=== PATIENT | female | born 1990 | race Caucasian/White ===

== ENCOUNTER 2016-05-27 06:35 | Emergency (ER) | payer OTHER ==
[~2016-05-27] VITALS: Ht 165.1 cm; Wt 99.8 kg
[~2016-05-27 06:35] MED LIST: ALBUTEROL0.09 MG/A1 INH; COMPAZINE10 M1 PO; CYCLOBENZAPRINE5 M2 PO; FLEXERIL10 MG PO; IBUPROFEN800 M1 PO; MARI INH; MECLIZINE HCL25 MG PO; PREDNISONE 20MG20 MG PO; PRILOSEC OTC20 MG PO; TOPIRAMATE25 M2 PO; TRANSDERM-SCOP1 EACH TOP; ZITHROMAX Z-PA250 M1 PO; ZOFRAN ODT4 MG PO; ZOFRAN4 M1 PO; ZOFRAN4 M2 PO
--- NOTE | 2016-05-27 07:32 | ED GI/GU/ABDOMINAL COMPLAINT ---
History of Present Illness General Chief Complaint: General Adult Stated Complaint: "PER PT NEED FLUIDS KEEP VOMITING" Source: patient, old records Exam Limitations: no limitations Vital Signs & Intake/Output Vital Signs & Intake/Output Vital Signs Date Time Temp Pulse Resp B/P Pulse O2 O2 Flow FiO2 Ox Delivery Rate 05/27 0738 100 Room Air 05/27 0654 97.3 110 16 135/88 97 Room Air Allergies Coded Allergies: avocado (Severe, ANAPHYLAXIS 12/22/15) Reconcile Medications Cannabis (Marijuana Oil) (Unknown Strength) AMP (Unknown Dose) INH AD PRN PTSD (Reported) Meclizine HCl 25 MG TABLET 1 TAB PO BID VERTIGO (Reported) Ondansetron (Zofran Odt) 4 MG TAB.RAPDIS 1 TAB SL TID PRN nausea, vomiting Prochlorperazine Maleate (Compazine) 10 MG TABLET 1 TAB PO TID PRN NAUSEA Scopolamine Hydrobromide (Transderm-Scop) 1.5MG/3DAY PATCH.TD.3 1 PAT TOP Q3D PRN DIZZY apply to the hairless area behind 1 ear at least 4 hours before effect is required; reapply every 3 days as needed Topiramate 25 MG TABLET 1 TAB PO QPM SEIZURES (Reported) Triage Note: 26YO FEMALE TO TRIAGE W/CO VOMITING SINCE 0200 AFTER DRINKING. DENIES ANY ABD PAIN OR DIARRHEA. Triage Nurses Notes Reviewed? yes LMP (ages 10-50): unknown ? N Is pt currently ? No Onset: Morning Duration: hour(s):, continues in ED Timing: recent history Quality/Severity: severe, vomiting Radiation: no radiation Activities at Onset: rest Prior Abdominal Problems: none Past Sexual History: Unobtainable at this time Modifying Factors: Worsens With: eating. Associated Symptoms: loss of appetite, nausea/vomiting, weakness HPI: Evening prior to admission patient was celebrating her birthday and drank a lot of alcohol. Several hours prior to admission she developed nausea vomiting weakness. She denies fever chills chest pain cough shortness of breath abdominal pain diarrhea dysuria rash headache bleeding. Past History Travel History Traveled to [place] past 21 day No Medical History Any Pertinent Medical History? 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 No Review of Systems Review of Systems Constitutional: Reports: no symptoms. EENTM: Reports: no symptoms. Respiratory: Reports: no symptoms. Cardiovascular: Reports: no symptoms. GI: Reports: see HPI, nausea, vomiting. Genitourinary: Reports: no symptoms. Musculoskeletal: Reports: no symptoms. Skin: Reports: no symptoms. Neurological/Psychological: Reports: no symptoms. Hematologic/Endocrine: Reports: no symptoms. Immunologic/Allergic: Reports: no symptoms. All Other Systems: Reviewed and Negative Physical Exam Physical Exam General Appearance: well developed/nourished, alert, awake, anxious, moderate distress, obese Head: atraumatic, normal appearance Eyes: Bilateral: normal appearance, PERRL, EOMI, normal inspection. Ears, Nose, Throat, Mouth: hearing grossly normal Neck: normal inspection, supple, full range of motion, normal alignment Respiratory: normal breath sounds, chest non-tender, no respiratory distress, quiet respiration, lungs clear Cardiovascular: regular rate/rhythm, normal peripheral pulses, norml femoral pulses equa Peripheral Pulses: 4+ carotid (R), 4+ carotid (L), 2+ radial (R), 2+ radial (L) Gastrointestinal: normal bowel sounds, soft, non-tender, no organomegaly Back: normal inspection, normal range of motion Extremities: normal range of motion, no ligament instability Neurologic/Psych: no motor/sensory deficits, awake, alert, oriented x 3, normal gait, normal mood/affect, 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 No Severe Sepsis Present: No Septic Shock Present: No Progress Differential Diagnosis: gastritis, alcohol toxicity Plan of Care: Current Medications Sig/Anmol Start time Last Medication Dose Stop Time Status Admin Famotidine 20 MG ONCE ONE 05/27 729 AC (Pepcid) 05/27 730 Ondansetron HCl 4 MG ONCE ONE 05/27 729 AC (Zofran) 05/27 730 Sodium Chloride 1,000 ML BOLUS ONE 05/27 729 AC (Normal Saline 0.9%) 05/27 828 Sodium Chloride 1,000 ML BOLUS ONE 05/27 07 AC (Normal Saline 0.9%) 05/27 828 Initial ED EKG: none Departure Departure Time of Disposition: 846 Disposition: HOME OR SELF CARE Condition: Stable Clinical Impression Primary Impression: Nausea and vomiting in adult Referrals: JR COSBY (PCP/Family) Additional Instructions: Clear liquids for 12-24 hours until better Departure Forms: Customer Survey General Discharge Information Prescriptions: Current Visit Scripts Ondansetron (Zofran Odt) 1 TAB SL TID PRN nausea, vomiting #15 TAB
[2016-05-27] MEDS ORDERED: ZOFRAN ODT4 M1 SL (08:48)
[2016-05-27 09:27] VITALS: BP 121/75
== END 2016-05-27 10:04 ==
LOC: ERH 06:35
DX: R11.2 Nausea with vomiting, unspecified (principal); R53.1 Weakness
CPT/HCPCS: 96361; 96374; 96375; J2405

== ENCOUNTER 2016-06-13 17:15 | Emergency (ER) | payer OTHER ==
[~2016-06-13] VITALS: Ht 162.6 cm; Wt 90.7 kg
[~2016-06-13 17:15] MED LIST changes: +ZOFRAN ODT4 M1 SL
--- NOTE | 2016-06-13 19:44 | ED NEURO DEFICIT/STROKE ---
History of Present Illness General Chief Complaint: Nausea, Vomiting, Diarrhea Stated Complaint: VOMITING,HEADACHE,DIZZINESS Source: patient, old records Exam Limitations: no limitations Allergies Coded Allergies: avocado (Severe, ANAPHYLAXIS 12/22/15) Reconcile Medications Cannabis (Marijuana Oil) (Unknown Strength) AMP (Unknown Dose) INH AD PRN PTSD (Reported) Meclizine HCl 25 MG TABLET 1 TAB PO BID VERTIGO (Reported) Ondansetron (Zofran Odt) 4 MG TAB.RAPDIS 1 TAB SL TID PRN nausea, vomiting Topiramate 25 MG TABLET 1 TAB PO QPM SEIZURES (Reported) Triage Note: C/O LEFT HAND FEELING "TINGLY" WHILE AT WORK, WITH TUNNEL VISION AND VOMITING WHILE AT WORK. PMH: SEIZURES. Triage Nurses Notes Reviewed? yes Onset: Abrupt Duration: hour(s): (3), constant Timing: recent history Severity: moderate Baseline: alert, oriented x 3 Associated Symptoms: DENIES : No Patient currently breastfeeds: No HPI: This is a 26-year-old female with history of seizure disorder on Topamax recently increased to 50 mg a day presents after she had sudden onset 3 hours ago of a left-sided headache Tunnel vision vomiting times one and tingling all over her body. Patient reports the symptoms are similar to her prodromal symptoms prior to a seizure in the past. Her last seizure roughly 4 weeks ago. She had her Topamax increased to 50 mg which she has been compliant with since then. Her neurologist is out of [place]. There are no modifying factors she has not taken anything for her symptoms, she states since being here the symptoms have improved no fever no chills no diarrhea no chest pain or abdominal pain (TONIO KHALIL) Vital Signs & Intake/Output Vital Signs & Intake/Output Vital Signs Date Time Temp Pulse Resp B/P Pulse O2 O2 Flow FiO2 Ox Delivery Rate 06/13 2142 98.6 88 17 138/78 100 Room Air 06/13 194 98 Room Air 06/13 181 98.3 90 18 139/82 99 Room Air Past History Travel History Traveled to [place] past 21 day No Medical History Any Pertinent Medical History? 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 No (TONIO KHALIL) Review of Systems Review of Systems Constitutional: Reports: see HPI. All Other Systems: Reviewed and Negative Comments Review of systems: See HPI, All other systems negative. Constitutional, no chills no fever, no malaise HEENT: No visual changes no sore throat no congestion Cardiovascular: No chest pain , no palpitation Skin, no rashes, no change in skin Respiratory: No dyspnea no cough no sputum no hemoptysis GI: nausea no vomiting, no diarrhea : No dysuria Muscle skeletal: No joint pain, no joint swelling, no back pain, no neck pain, Neurologic: No numbness no confusion, headache Psych: No stress Heme/endocrine: No bruising no bleeding Immunology: No lymphadenopathy, (TONIO KHALIL) Physical Exam Physical Exam General Appearance: well developed/nourished, alert, awake Cranial Nerves: normal hearing, normal speech, PERRL Comments: Well-developed well-nourished person in no acute distress HEENT: Normal EENT exam; PERRL, EOMI, no nystagmus. HEAD is atraumatic. moist mucous membranes. Neck: Supple, negative Brudzinski sign normal range of motion without pain or tenderness Back: Nontender, no CVA tenderness. Full range of motion Cardiovascular: Regular rate and rhythms no murmurs rubs or gallops Respiratory: No respiratory distress. Patient speaking in full complete sentences. Breath sounds clear to auscultation bilaterally: NO W/R/R Abdomen: Soft, nontender nondistended, no appreciable organomegaly. Normal bowel sounds. No rebound/guarding, No appreciable enlargement of the abdominal aorta, No ascites. Extremity: No edema, full range of motion of extremities, normal and equal pulses bilaterally, 5 out of 5 strength noted to bilateral upper and lower extremities Neuro: Alert oriented x3, motor sensory normal, cranial nerves II through XII grossly intact. There were no obvious focal neurologic abnormalities. Skin: No appreciable rash on exposed skin, skin is warm and dry. Psych: Mood and affect is normal, memory and judgment is normal. Core Measures CVA/TIA Diagnosis: No Severe Sepsis Present: No Septic Shock Present: No (TONIO KHALIL) Progress Differential Diagnosis: drug intoxication, electrolyte imbalance, intracranial Hem., intracranial mass/tumor, meningitis, migraine SENA, seizure disorder, subarachnoid Hem., vertebrobasilar insuff. Initial ED EKG: none (TONIO KHALIL) Plan of Care: Orders Procedure Date/time Status Saline Lock 06/13 1950 Active PROLACTIN 06/13 1950 Complete COMPREHENSIVE METABOLIC PANEL 06/13 1950 Complete CBC WITHOUT DIFFERENTIAL 06/13 1950 Complete Laboratory Tests 06/13/16 2005: Anion Gap 7, Estimated GFR > 60, BUN/Creatinine Ratio 11.4, Glucose 78, Calcium 9.5, Total Bilirubin 1.1, AST 30, ALT 42, Alkaline Phosphatase 76, Total Protein 7.3, Albumin 4.4, Globulin 2.9, Albumin/Globulin Ratio 1.5, Prolactin 13.1, CBC w Diff NO MAN DIFF REQ, RBC 4.96, MCV 90.5, MCH 30.0, RDW 12.5, MPV 7.7, Gran % 69.2, Lymphocytes % 23.2, Monocytes % 4.7, Eosinophils % 2.6, Basophils % 0.3, Absolute Granulocytes 7.4 H, Absolute Lymphocytes 2.5, Absolute Monocytes 0.5, Absolute Eosinophils 0.3, Absolute Basophils 0, PUBS MCHC 33.1 Patient reports these symptoms are exactly similar to her prodromal symptoms of having a seizure in the past IV fluids Zofran and Toradol IV ordered we will continue to monitor CASE D/W DR CHAVEZ' On repeat evaluation patient reports she is feeling improved after the IV fluids Zofran headache has improved patient would like to go home I discussed with her need for close follow-up with her neurologist, advised return anytime sooner for symptoms return or she has any other concerns difficult plan cleared for discharge (TONIO KHALIL) Departure Departure Time of Disposition: 2208 Disposition: HOME OR SELF CARE Condition: Stable Clinical Impression Primary Impression: Headache Referrals: JR COSBY (PCP/Family) Additional Instructions: Follow-up with your neurologist this week continue taking your medication as prescribed return with any concerns Departure Forms: Customer Survey General Discharge Information (TONIO KHALIL) PA/OPERATIONS INTELLIGENCE Co-Sign Statement Statement: ED Attending supervision documentation- [] I saw and evaluated the patient. I have also reviewed all the pertinent lab results and diagnostic results. I agree with the findings and the plan of care as documented in the PA's/OPERATIONS INTELLIGENCE's documentation. [X] I have reviewed the ED Record and agree with the PA's/OPERATIONS INTELLIGENCE's documentation. [] Additions or exceptions (if any) to the PAs/OPERATIONS INTELLIGENCE's note and plan are summarized below: [] (KATHY FELIZ,ROD) ED Attending Observation Initial Observation Note: I have seen and personally examined CAS MADDEN on 06/13/16 at 1956. I agree with the current emergency department documentation. The disposition (admission or discharge) is uncertain at this time, she needs a period of observation for the following reason(s): The ED Nurse caring for this patient has been personally informed as to what the patient is being observed for. (ROSY CONTRERAS,TONIO)
[2016-06-13 20:34] LABS: ABSOLUTE BASOPHIL COUNT 0 /CUMM (0.0-0.2); ABSOLUTE EOSINOPHIL COUNT 0.3 /CUMM (0.0-0.7); ABSOLUTE GRANULOCYTE CT 7.4 /CUMM (1.4-6.5); ABSOLUTE LYMPH COUNT 2.5 /CUMM (1.2-3.4); ABSOLUTE MONOCYTE COUNT 0.5 /CUMM (0.10-0.60); BASOPHIL % 0.3 % (0.0-2.0); EOSINOPHIL % 2.6 % (0-5); GRANULOCYTE % 69.2 % (42.2-75.2); HEMATOCRIT 44.9 % (37-47); MEAN CORPUSCULAR HGB CONC 33.1 G/DL (33.0-37.0); MEAN CORPUSCULAR VOLUME 90.5 FL (81.0-99.0); MEAN PLATELET VOLUME 7.7 FL (7.4-10.4); PLATELET COUNT 297 /CUMM (130-400); RBC DISTRIBUTION WIDTH 12.5 % (11.5-14.5); RED BLOOD CELL CT 4.96 /CUMM (4.20-5.40); WHITE BLOOD CELL COUNT 10.7 /CUMM (4.8-10.8)
[2016-06-13 21:43] VITALS: BP 138/78
== END 2016-06-13 22:14 ==
LOC: ERH 17:15
PROVIDERS: Physician Assistant Medical
DX: R51 Headache (principal)
CPT/HCPCS: 96361; 96375; J1885; J2405

== ENCOUNTER 2016-07-22 10:35 | Emergency (ER) | payer OTHER ==
[~2016-07-22] VITALS: Ht 160 cm; Wt 98.4 kg
[2016-07-22 11:00] VITALS: BP 132/78
--- NOTE | 2016-07-22 11:10 | ED UPPER/LOWER EXTREMITY COMPL ---
History of Present Illness General Chief Complaint: Hand or Wrist Injury Stated Complaint: LFT WRIST PAIN Source: patient Exam Limitations: no limitations Vital Signs & Intake/Output Vital Signs & Intake/Output Vital Signs Date Time Temp Pulse Resp B/P Pulse O2 O2 Flow FiO2 Ox Delivery Rate 07/22 1100 98.3 89 18 132/78 99 Room Air Allergies Coded Allergies: avocado (Severe, ANAPHYLAXIS 12/22/15) Reconcile Medications Cannabis (Marijuana Oil) (Unknown Strength) AMP (Unknown Dose) INH AD PRN PTSD (Reported) Meclizine HCl 25 MG TABLET 1 TAB PO BID VERTIGO (Reported) Ondansetron (Zofran Odt) 4 MG TAB.RAPDIS 1 TAB SL TID PRN nausea, vomiting Topiramate 25 MG TABLET 1 TAB PO QPM SEIZURES (Reported) Triage Note: PT TO ED FOR L WRIST PAIN, 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 REFUSING PAIN MEDS IN TRIAGE, PROVIDED AN ICE PACK FOR COMFORT. Triage Nurses Notes Reviewed? 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 Patient is right arm dominant. Denies any hand pain or elbow pain. (TONIO KIMBALL) Past History Travel History Traveled to [place] past 21 day No Medical History Any Pertinent Medical History? 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 No (TONIO KIMBALL) Review of Systems Review of Systems Constitutional: Reports: no symptoms. EENTM: Reports: no symptoms. Respiratory: Reports: no symptoms. Cardiovascular: Reports: no symptoms. Gastrointestinal/Abdominal: Reports: no symptoms. Genitourinary: Reports: no symptoms. Musculoskeletal: Reports: see HPI, joint pain. Skin: Reports: no symptoms. Neurological/Psychological: Reports: no symptoms. Hematologic/Endocrine: Reports: no symptoms. Immunological: Reports: no symptoms. All Other Systems: Reviewed and Negative (TONIO KIMBALL) Physical Exam Physical Exam General Appearance: no apparent distress, alert Neurologic/Tendon: normal sensation, normal motor functions, normal tendon functions, responds to pain, no evidence tendon injury Skin: intact, normal color, warm/dry Comments: Well-developed well-nourished no apparent distress. HEENT: Atraumatic, extraocular motion intact Neck: Supple, no lymphadenopathy Back: Nontender Respiratory: No respiratory distress Extremities: LEFT ELBOW- NORMAL INSPECTION, FULL AROM, FULL RROM FLEXION/EXTENSION Left wrist noted generalized point tenderness normal inspection decreased active range of motion noted with flexion and extension and radial deviation ulnar deviation Left hand nontender normal inspection Left upper extremity dermatomes intact radial pulse +2, Neuro: Alert and oriented x3 Psych: Mood affect normal, normal memory normal judgment. (TONIO KIMBALL) Progress Differential Diagnosis: cellulitis, compartment syndrome, contusion, dislocation , DVT, fracture, gout, septic arthritis, sprain, tendon injury Plan of Care: Orders Procedure Date/time Status Durable Medical Equipment 07/22 1204 Active Patient had nontender triquetral region per x-ray findings most likely the cyst is chronic in nature and incidental finding. No osseous injury noted on x-rays. Wrist splint was applied to left wrist pre-and post-neurovascular was intact. (TONIO KIMBALL) Diagnostic Imaging: Viewed by Me: Radiology Read. Radiology Impression: no fracture Comments: PATIENT: CAS MADDEN PRESENT AGE: 26 PATIENT ACCOUNT NO: [id number] : 90 LOCATION: [facility] ORDERING PHYSICIAN: TONIO CONTRERAS SERVICE DATE: 07/22/16-1101 EXAM TYPE: RAD - XRY-WRIST COMPLETE-LEFT EXAMINATION: XR WRIST, LEFT CLINICAL INFORMATION: Pain assess for fracture COMPARISON: None TECHNIQUE: Four views of the left wrist. FINDINGS: Bones are in normal anatomic alignment with no acute fracture or dislocation seen well-corticated degenerative cystic changes seen in the triquetral bone. There is a mild ulnar negative variance. Carpal alignment is intact. Surrounding soft tissues unremarkable. IMPRESSION: Well-corticated probable degenerative cyst in the triquetral bone. No acute fracture or dislocation. (TONIO KIMBALL) Departure Departure Disposition: HOME OR SELF CARE Condition: Stable Clinical Impression Primary Impression: Left wrist sprain Referrals: FRANCISCO FELIZ,JR JONAS (PCP/Family) Additional Instructions: DISCUSSED TOMORROW, FOLLOW UP WITH OCCUPATIONAL MEDICINE BEGIN ICING 20 MIN EVERY TWO HOURS BEGIN OVER THE COUNTER IBUPROFEN FOR PAIN AND INFLAMMATION IF SYMPTOMS WORSEN, RETURN TO THE ER FOLLOW UP IN ONE WEEK WITH ORTHOPEDIC DR. SINGH IF NO BETTER BEGIN USING THE WRIST SPLINT UNTIL YOU CAN MOVE YOUR WRIST WITHOUT PAIN Departure Forms: Customer Survey General Discharge Information (TONIO KIMBALL) PA/MACHINE I CUTTER Co-Sign Statement Statement: ED Attending supervision documentation- [] I saw and evaluated the patient. I have also reviewed all the pertinent lab results and diagnostic results. I agree with the findings and the plan of care as documented in the PA's/MACHINE I CUTTER's documentation. [X] I have reviewed the ED Record and agree with the PA's/MACHINE I CUTTER's documentation. [] Additions or exceptions (if any) to the PAs/MACHINE I CUTTER's note and plan are summarized below: [] (CONNIE FELIZ,CECILE Wayne)
--- NOTE | 2016-07-22 11:40 | RADIOLOGY REPORT ---
EXAMINATION: XR WRIST, LEFT CLINICAL INFORMATION: Pain assess for fracture COMPARISON: None TECHNIQUE: Four views of the left wrist. FINDINGS: Bones are in normal anatomic alignment with no acute fracture or dislocation seen well-corticated degenerative cystic changes seen in the triquetral bone. There is a mild ulnar negative variance. Carpal alignment is intact. Surrounding soft tissues unremarkable. IMPRESSION: Well-corticated probable degenerative cyst in the triquetral bone. No acute fracture or dislocation.
== END 2016-07-22 12:30 ==
LOC: ERH 10:35
DX: S63.502A Unspecified sprain of left wrist, initial encounter (principal); X50.0XXA Overexertion from strenuous movement or load, initial encounter; Y93.G1 Activity, food preparation and clean up; Y92.239 Unspecified place in hospital as the place of occurrence of the external cause
CPT/HCPCS: 73110-LT

== ENCOUNTER 2016-08-06 09:53 | Emergency (ER) | payer OTHER ==
[~2016-08-06] VITALS: Ht 162.6 cm; Wt 99.8 kg
[2016-08-06 09:58] VITALS: BP 138/81
--- NOTE | 2016-08-06 10:11 | ED THROAT/DENTAL COMPLAINT ---
History of Present Illness General Chief Complaint: Sore Throat, Dental Pain Stated Complaint: ?STREP THROAT Source: patient, old records Exam Limitations: no limitations Vital Signs & Intake/Output Vital Signs & Intake/Output Vital Signs Date Time Temp Pulse Resp B/P Pulse O2 O2 Flow FiO2 Ox Delivery Rate 08/06 0958 99.0 116 20 138/81 97 Room Air Allergies Coded Allergies: avocado (Severe, ANAPHYLAXIS 12/22/15) Reconcile Medications Amoxicillin/Potassium Clav (Augmentin 875-125 Tablet) 875 MG-125 MG TABLET 1 TAB PO BID strep throat Cannabis (Marijuana Oil) (Unknown Strength) AMP (Unknown Dose) INH AD PRN PTSD (Reported) Meclizine HCl 25 MG TABLET 1 TAB PO BID VERTIGO (Reported) Ondansetron (Zofran Odt) 4 MG TAB.RAPDIS 1 TAB SL TID PRN nausea, vomiting Topiramate 25 MG TABLET 1 TAB PO QPM SEIZURES (Reported) Triage Note: PT TO ED C/O SORE THROAT X 3 DAYS. UNSURE OF FEVERS AT HOME. Triage Nurses Notes Reviewed? yes Onset: Abrupt Duration: day(s): (3), constant Timing: recent history Injury Environment: home Severity: moderate Severity Numbers: 6 No Modifying Factors: none Associated Symptoms: denies : No Patient currently breastfeeds: No HPI: 26-year-old female presents in the emergency room today for evaluation complain 3 days sudden onset sore throat pain with swallowing rhinorrhea congestion. She denies fever chills cough no sick contacts recent travel. She has not sought care for the symptoms were taken anything for symptoms. She denies any ear pain shortness of breath chest pain abdominal pain nausea or vomiting. Past History Travel History Traveled to [place] past 21 day No Medical History Any Pertinent Medical History? 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 No Review of Systems Review of Systems Constitutional: Reports: see HPI. All Other Systems: Reviewed and Negative Comments Review of systems: See HPI, All other systems negative. Constitutional, no chills no fever, no malaise HEENT: sore throat no congestion, no ear pain Cardiovascular: No chest pain , no palpitation Skin, no rashes, no change in skin Respiratory: No dyspnea no cough no sputum GI: No nausea no vomiting, no diarrhea : No dysuria Muscle skeletal: No joint pain, no back pain, no neck pain, Neurologic: No numbness no headache Psych: No stress Heme/endocrine: No bruising no bleeding Immunology: No lymphadenopathy Physical Exam Physical Exam General Appearance: well developed/nourished, alert Mouth/Throat: tonsillar exudate Comments: Well-developed well-nourished patient in no apparent distress. Head/Face: Atraumatic, no maxillary/frontal sinus tenderness, no facial swelling Eyes: PERRL, EOMI, no conjunctival injection. No nystagmus Ear:External auditory canal and Tympanic membranes clear, no erythema, no FB. Nose: atraumatic.Normal inspection Throat: Moist mucous membranes pharynx is erythematous, there is bilateral tonsillar exudate no trismus no uvula displacement no stridor/drooling or assymetry. No swelling or edema. Neck: Supple, no lymphadenopathy, FROM Back: FROM, Nontender Cardiovascular: Regular rate and rhythms no murmurs rubs Respiratory: Chest nontender.There were no bony deformities, no asymmetry. No respiratory distress. Patient speaking in full complete sentences. Breath sounds clear to auscultation bilaterally: NO W/R/R Extremities: full range of motion Neuro: Alert and oriented x3 Skin: Warm & dry;No appreciable rash on exposed skin Psych: Mood affect normal, normal memory normal judgment. Core Measures ACS in differential dx? No Severe Sepsis Present: No Septic Shock Present: No Progress Differential Diagnosis: epiglottitis, Ludwigs angina, odontogenic abscess, pharyngeal for. body, strep pharyngitis Plan of Care: Orders Procedure Date/time Status THROAT CULTURE W/QUICK STREP 08/06 0959 Complete I discussed with the patient at length all of their results. I had an extensive conversation regarding need for close follow up with their primary care physician this week as well as return precautions. I answered all of their questions, they feel comfortable with the plan and follow-up care. I discussed the medications that they will receive with the patient. I gave them signs and symptoms that could indicate an adverse reaction. I have advised them to limit their activities until they can see how they respond to the medication. (TONIO KHALIL) Departure Departure Time of Disposition: 1045 Disposition: HOME OR SELF CARE Condition: Stable Clinical Impression Primary Impression: Strep pharyngitis Referrals: JR COSBY (PCP/Family) Additional Instructions: Augmentin as directed Tylenol Motrin as needed saltwater gargles drink plenty fluids [facility] Return anytime sooner with any concerns Departure Forms: Customer Survey General Discharge Information Prescriptions: Current Visit Scripts Amoxicillin/Potassium Clav (Augmentin 875-125 Tablet) 1 TAB PO BID #14 TAB
[2016-08-06] MEDS ORDERED: AUGMENTIN 875-1 EACH PO (10:47)
== END 2016-08-06 10:55 ==
LOC: ERH 09:53
DX: J02.0 Streptococcal pharyngitis (principal); Z72.0 Tobacco use